=== PATIENT | male | born 1955 | race Caucasian/White ===

== ENCOUNTER 2020-12-17 13:43 | Emergency (ER) | payer BC ==
[~2020-12-17] VITALS: Ht 182.9 cm; Wt 94.1 kg
[~2020-12-17 13:43] MED LIST: FOR CHOLESTEROL; NORCO 325 MG-51 TAB PO; SYNTHROID 0.0.025 MG PO
[2020-12-17 13:56] VITALS: BP 147/71; TEMP 96.9
[2020-12-17] MEDS ORDERED: MOBIC15 MG PO (14:12)
[2020-12-17 15:10] VITALS: PULSE 70
== END 2020-12-17 15:10 | disposition home or self-care (01) ==
LOC: COL.ER 13:43
DX: M25.561 Pain in right knee (principal); E03.9 Hypothyroidism, unspecified; F17.210 Nicotine dependence, cigarettes, uncomplicated; Z79.890 Hormone replacement therapy
CPT/HCPCS: J1885; L1830; L1846

== ENCOUNTER → 2022-05-02 | Outpatient (CLI) | payer MEDICARE, BC ==
[~2022-05-02] MED LIST changes: +MOBIC15 MG PO
== END ==
LOC: COL.RAD 07:32
DX: K44.9 Diaphragmatic hernia without obstruction or gangrene (principal)